=== PATIENT | male | born 1985 | race Caucasian/White ===

== ENCOUNTER 2018-11-18 05:37 | Emergency (ER) | payer SELFPAY ==
[~2018-11-18] VITALS: Ht 162.6 cm; Wt 73.0 kg
[2018-11-18 08:01] VITALS: BP 135/67
== END 2018-11-18 08:08 | disposition left against medical advice (07) ==
LOC: ER 05:37
DX: R07.89 Other chest pain (principal); F15.10 Other stimulant abuse, uncomplicated; R50.9 Fever, unspecified; R00.0 Tachycardia, unspecified
CPT/HCPCS: 71045; 99283; Z7610